=== PATIENT | male | born 1985 | race Hispanic/Latino ===

== ENCOUNTER 2019-11-14 12:46 | Outpatient (CLI) | payer OTHER ==
--- NOTE | 2019-11-14 14:03 | RAD ---
CHEST 1 VIEW: HISTORY: The patient fell with right-sided pain. FINDINGS: Heart size and mediastinum are within normal limits. The lungs are clear of any infiltrative process . I do not appreciate any definite rib fractures. No pneumothorax. IMPRESSION: No active intrathoracic disease. POS: JERED
--- NOTE | 2019-11-14 14:04 | RAD ---
RIGHT RIBS 3 VIEWS: Date: 11/14/2019 HISTORY: Costochondral junction pain. History of fall. FINDINGS: There are no signs of fracture or dislocation. No pleural effusion or pneumothorax. IMPRESSION: Negative right ribs. POS: JERED
== END 2019-11-14 12:47 | disposition home or self-care (01) ==
LOC: BICRAD 12:46
DX: M94.0 Chondrocostal junction syndrome [Tietze] (principal)
CPT/HCPCS: 71045

== ENCOUNTER 2020-07-31 03:34 | Emergency (ER) ==
[2020-07-31 05:09] LABS: #Basophils 0.1 thou/uL (0.0-0.2); #Eosinphils 0.4 thou/uL (0.0-0.7); #Lymphocytes 3.8 thou/uL (1.20-3.40); #Neutrophils 7.6 thou/uL (1.40-6.50); %Eosinophils 2.9 % (0.0-10.0); %Lymphocytes 29.2 % (21.0-51.0); %Monocytes 7.9 % (0.0-10.0); Hemoglobin 16.3 g/dL (14.0-18.0); Mean Corpuscular HGB CONC 33.8 g/dL (32.0-36.0); Mean Corpuscular Hemoglobin 30.1 pg (27.0-31.0); Mean Platelet Volume 7.7 fL (7.4-10.4); Platelet Count 287 thou/uL (130-400); RBC Distribution Width 11.5 % (11.5-14.5); Red Blood Cell (RBC) Count 5.41 mill/uL (4.70-6.10); White Blood Cell (WBC) Count 12.9 thou/uL (4.8-10.8)
[2020-07-31] MEDS ORDERED: Ondansetron PF 4 MG/2 ML Vial ONE (05:17)
[2020-07-31] MEDS ORDERED: Morphine 4 MG/ML VIAL ONE (05:17)
[2020-07-31 05:31] LABS: ALT (SGPT) 19 U/L (8-55); AST (SGOT) 14 U/L (5-34); Albumin 4.4 g/dL (3.5-5.0); Alkaline Phosphatase 123 U/L (40-110); Anion Gap 10 mmol/L (10-20); BUN (Urea Nitrogen) 13 mg/dL (8.9-20.6); Bilirubin, Total 0.3 mg/dL (0.2-1.2); CK (CPK) 132 U/L (30-200); Calc. Creatinine Clearance 0 mL/min (70-130); Calcium 9.2 mg/dL (7.8-10.44); Carbon Dioxide 26 mmol/L (22-29); Chloride 107 mmol/L (98-107); Globulin 3.1 g/dL (2.4-3.5); Glucose 159 mg/dL (70-105); Potassium 3.8 mmol/L (3.5-5.1); Protein, Total 7.5 g/dL (6.0-8.3); Sodium 139 mmol/L (136-145)
[2020-07-31] MEDS ORDERED: Mag-Al 1200 mg/1200 mg/30 ML UDCUP ONE (08:15)
[2020-07-31] MEDS ORDERED: Lidocaine Viscous Sol 2% 15 ml UD Cup ONE (08:15)
[2020-07-31] MEDS ORDERED: Iopamidol-370 76% 500 ML 1 ML ONE (09:40)
== END 2020-07-31 08:30 | disposition home or self-care (01) ==
LOC: ERS 03:34
DX: R10.84 Generalized abdominal pain (principal); R10.13 Epigastric pain; F17.210 Nicotine dependence, cigarettes, uncomplicated
CPT/HCPCS: 36415; 71045; 74177; 80053; 82550; 83690; 84484; 85025; 93005; 96374; 96375; J2270; J2405; Q9967